=== PATIENT | male | born 2000 | race Two or more races ===

== ENCOUNTER 2018-01-11 09:33 | Inpatient (IN) | payer MEDICAID ==
[~2018-01-11] VITALS: Ht 172.7 cm; Wt 70.8 kg
--- NOTE | 2018-01-11 09:48 | NUR ---
PATIENT TO ED DT DIFFUSED ABDOMINAL PAIN X 2 DAYS. REPORTED VOMITTING 3X. DENIES DIAREHA. PATIENT NOT IN DISTRESS. SKIN IS WARM TO TOUCH AND NON DIAPHORETIC. AFEBRILE. VSS
--- NOTE | 2018-01-11 10:01 | NUR ---
SEEN BY MD JAMISON
--- NOTE | 2018-01-11 10:02 | NUR ---
SEEN BY MD BEAN
[2018-01-11] MEDS ORDERED: METOCLOPRAMIDE HCL 10 MG/2 ML VIAL ONE (10:11)
[2018-01-11 10:25] LABS: BASOPHILS # (AUTO) 0.1 /CMM (0.0-0.2); BASOPHILS % (AUTO) 0.6 % (0.0-2.0); EOSINOPHILS % (AUTO) 0.1 % (0.0-6.0); HEMATOCRIT 47 % (39-51); HEMOGLOBIN 15.7 g/dL (13.5-17.5); LYMPHOCYTES % (AUTO) 5.6 % (20.0-44.0); MEAN CORPUSCULAR HEMOGLOBIN 28 PG (26.0-33.0); MEAN CORPUSCULAR HGB CONC 33 g/dl (31.0-36.0); MEAN CORPUSCULAR VOLUME 85 fL (80-96); MONOCYTES # (AUTO) 0.7 /CMM (0.1-1.30); MONOCYTES % (AUTO) 3.8 % (2.0-12.0); NEUTROPHILS # (AUTO) 16.4 /CMM (1.8-8.9); NEUTROPHILS % (AUTO) 89.9 % (43.0-81.0); PLATELET COUNT (AUTO) 292 /CMM (150-450); RDW COEFFICIENT OF VARIATION 12.2 (11.5-15.0); WHITE BLOOD COUNT (AUTO) 18.2 K/uL (4.3-11.0)
[2018-01-11 10:25] LABS: APPEARANCE,URINE Clear (CLEAR); BILIRUBIN,URINE SMALL (NEGATIVE); BLOOD, URINE Negative Ery/uL (NEGATIVE); COLOR,URINE Dark (YELLOW); KETONES,URINE Negative (NEGATIVE); LEUKOCYTE ESTERASE ,URINE Negative (NEGATIVE); NITRITE, URINE Negative (NEGATIVE); PH,URINE 5.5 (5.0-8.0); PROTEIN,URINE Trace mg/dl (NEGATIVE); UGLUCOSE Negative (NEGATIVE); UROBILINOGEN,URINE 0.2 EU/dL (0.2)
[2018-01-11] MEDS ORDERED: IV NS 0.9% 1,000 ML BAG IV ONE (10:30)
[2018-01-11] MEDS ORDERED: METOCLOPRAMIDE HCL 10 MG/2 ML VIAL IV ONE (10:30)
[2018-01-11 10:32] LABS: CALCIUM, SERUM 9.6 mg/dL (8.5-10.1); POTASSIUM 4.2 mmol/L (3.5-5.1)
[2018-01-11 10:35] LABS: BACTERIA,URINE Few /HPF (None Seen); RBC,URINE 0-2 /HPF (0-2); SQUAMOUS EPITHELIAL CELL,UR Rare /HPF (None Seen)
[2018-01-11 10:36] LABS: URINE AMORPHOUS URATE Moderate /HPF (None Seen)
[2018-01-11] MEDS ORDERED: MORPHINE SULFATE INJ 4 MG/ML DISP.SYRIN ONE (10:36)
[2018-01-11] MEDS ORDERED: MORPHINE SULFATE INJ 2 MG/ML DISP.SYRIN IV ONE (11:00)
[2018-01-11] MEDS ORDERED: PIPERACILLIN /TAZOBACTAM 3.375 G in IV D5W 50 ML IV ONE (13:00)
--- NOTE | 2018-01-11 13:01 | NUR ---
CALLED PHARMACY FOR MADELINE
--- NOTE | 2018-01-11 13:21 | NUR ---
CALLED [facility] [facility] RESIDENTIAL SUBSTANCE ABUSE COUNSELOR WAS PAGED.
[2018-01-11 13:30] VITALS: BP 138/79
--- NOTE | 2018-01-11 13:30 | NUR ---
MS DIRECT CARE COUNSELOR NOTE PT BROUGHT TO MS UNIT VIA WHEELCHAIR ACCOMPANIED BY 2 ER STAFF IN STABLE CONDITION. PT IS A/O X4, AFEBRILE. RESPIRATIONS ARE EVEN AND UNLABORED, NOT IN ANY ACUTE DISTRESS NOTED. 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 ABDOMEN IS LITTLE TENDER AND C/O PAIN 8/10. PT STATED HE DOES NOT NEED ANY PAIN MEDS AT THIS TIME. PT DENIES ANY BLADDER DISCOMFORT. DENIES ANY SOB, N/V AT THIS TIME. IV ACCESS TO LAC 20G, NO INFILTRATION NOTED. DRESSING KEPT CLEAN AND DRY. SAFETY MEASURES ARE IN PLACE. DR. HAGAN MADE AWARE OF ADMISSION. INSTRUCTED PT TO USE CALL LIGHT WHEN ASSISTANCE IS NEEDED, CALL LIGHT IS LEFT WITHIN REACH. PT NOTIFIED PT BEING NPO EXCEPT MEDS FOR NOW AND IS COMPLIANT. WILL CONTINUE TO MONITOR THROUGHOUT SHIFT FOR CONTINUE OF CARE.
--- NOTE | 2018-01-11 13:38 | NUR ---
REPORT GIVEN TO TESS JONES.
[2018-01-11] MEDS ORDERED: MAGNESIUM HYDROXIDE 30 ML UDC PO PRN (14:00)
[2018-01-11] MEDS ORDERED: ACETAMINOPHEN 325 MG TABLET PO PRN (14:00)
[2018-01-11] MEDS ORDERED: Z GUARD REMEDY 2 OZ OINT TP PRN (14:00)
[2018-01-11] MEDS ORDERED: MORPHINE SULFATE INJ 2 MG/ML DISP.SYRIN IV PRN ×3 (14:00→21:00)
[2018-01-11] MEDS ORDERED: MAG HYDROX/AL HYDROX/SIMETH 30 ML UDC PO PRN (14:00)
[2018-01-11] MEDS ORDERED: ONDANSETRON HCL/PF 4 MG/2 ML VIAL IVP PRN (14:00)
[2018-01-11] MEDS ORDERED: ZOLPIDEM TARTRATE 5 MG TABLET PO PRN (14:00)
[2018-01-11 16:00] VITALS: BP 123/77
--- NOTE | 2018-01-11 16:41 | NUR ---
MS RN NOTES RECEIVED ORDERS PER DR. SHUKLA FOR PROCEDURE CONSENT FOR LAPARASCOPIC APPENDECTOMY, POSSIBLE OPEN. ALL CONSENTS SIGNED.
[2018-01-11 16:51] LABS: INR 0.95 (0.87-1.13)
--- NOTE | 2018-01-11 17:43 | NUR ---
MS RN NOTES OR STAFF PICKED UP PT FOR SURGERY IN STABLE CONDITION.
[2018-01-11] MEDS ORDERED: ANESTHESIA TRAY IN PYXIS 1 EA TRAY MC ONE (17:45)
[2018-01-11] MEDS ORDERED: FENTANYL PF 100MCG/2ML AMPUL ONE (17:53)
[2018-01-11] MEDS ORDERED: MIDAZOLAM HCL 2 MG/2ML VIAL ONE (17:54)
[2018-01-11] MEDS ORDERED: ROCURONIUM BROMIDE 50 MG/5 ML ONE ×2 (17:54→19:31)
[2018-01-11] MEDS ORDERED: LIDOCAINE 1%-EPI 1:100,000 20 ML VIAL ONE (18:09)
[2018-01-11] MEDS ORDERED: BUPIVACAINE MPF 0.75% 30 ML VIAL IJ ONE (18:30)
--- NOTE | 2018-01-11 18:56 | NUR ---
MS RN CLOSING NOTES PT NOT BACK FROM SURGERY. ENDORSED TO NEXT SHIFT FOR CONTINUITY OF CARE.
--- NOTE | 2018-01-11 19:30 | NUR ---
RN OPENING NOTES RECEIVED REPORT FROM ZAIN JONES. Pt STILL IN OR FOR SURGERY.
--- NOTE | 2018-01-11 21:00 | NUR ---
RN NOTES Pt BROUGHT BACK FROM OR. Pt LOOKS LETHARGIC, BUT IS RESPONSIVE AND ANSWERING QUESTIONS. DENIES PAIN AT THIS TIME. SURGICAL SITES ON LUQ, BELLY BUTTON, & PUBIC REGION. EDUARD DRAIN IN PUBIC REGION, COVERED WITH GAUZE AND TAPE, NO SIGNS OF BLEEDING. DRAINAGE NOTED IN EDUARD DRAIN. NO S/S OF ACUTE DISTRESS OR SOB NOTED. VS STABLE. FAMILY VISITING AT BEDSIDE. SAFETY MEASURES IN PLACE. BED LOW, LOCKED, HOB ELEVATED, SIDE RAILS UP, CALL LIGHT AND BEDSIDE TABLE WITHIN REACH. WILL CONTINUE TO MONITOR Pt FOR SAFETY.
--- NOTE | 2018-01-11 21:05 | NUR ---
RN NOTES EDUARD DRAIN 50CC
[2018-01-11 22:00] VITALS: BP 128/65
[2018-01-11] MEDS ORDERED: PIPERACILLIN /TAZOBACTAM 3.375 G VIAL IV ONE (22:52)
[2018-01-11] MEDS: PIPERACILLIN /TAZOBACTAM 3.375 G in IV NS 0.9% 50 ML IV SCH (23:24)
[2018-01-12] MEDS: MORPHINE SULFATE INJ 2 MG/ML DISP.SYRIN IV PRN ×4 (00:57→17:12)
[2018-01-12] MEDS ORDERED: PIPERACILLIN /TAZOBACTAM 3.375 G VIAL IV ONE (02:44)
[2018-01-12] MEDS: PIPERACILLIN /TAZOBACTAM 3.375 G in IV NS 0.9% 50 ML IV SCH ×2 (03:00→09:53)
--- NOTE | 2018-01-12 06:40 | NUR ---
RN NOTES ADDITIONAL EDUARD DRAIN OUTPUT 50CC. TOTAL 100CC OUTPUT.
--- NOTE | 2018-01-12 06:45 | NUR ---
RN CLOSING NOTES NO SIGNIFICANT CHANGES IN Pt's CONDITION. Pt REMAINS STABLE AT THIS TIME. NO S/S OF ACUTE DISTRESS OR SOB NOTED DURING THE NIGHT. Pt SLEPT WELL WITH EVEN AND UNLABORED RESPIRATIONS. ALL NEEDS MET AND ATTENDED TO. SAFETY MEASURES IN PLACE. BED LOW, LOCKED, HOB ELEVATED, SIDE RAILS UP, CALL LIGHT AND BEDSIDE TABLE WITHIN REACH. WILL ENDORSE TO DAYSHIFT RN FOR Pt's YUSUF.
[2018-01-12 06:50] LABS: BASOPHILS % (AUTO) 0.3 % (0.0-2.0); HEMATOCRIT 40 % (39-51); HEMOGLOBIN 13.3 g/dL (13.5-17.5); LYMPHOCYTES # (AUTO) 1.9 /CMM (0.8-4.8); LYMPHOCYTES % (AUTO) 12.6 % (20.0-44.0); MEAN CORPUSCULAR HEMOGLOBIN 29 PG (26.0-33.0); MEAN CORPUSCULAR HGB CONC 33 g/dl (31.0-36.0); MEAN CORPUSCULAR VOLUME 88 fL (80-96); MONOCYTES # (AUTO) 0.6 /CMM (0.1-1.30); MONOCYTES % (AUTO) 4.2 % (2.0-12.0); NEUTROPHILS # (AUTO) 12.7 /CMM (1.8-8.9); NEUTROPHILS % (AUTO) 82.9 % (43.0-81.0); PLATELET COUNT (AUTO) 240 /CMM (150-450); RDW COEFFICIENT OF VARIATION 13.2 (11.5-15.0); RED BLOOD CELL COUNT(AUTO) 4.53 MIL/uL (4.5-6.0); WHITE BLOOD COUNT (AUTO) 15.3 K/uL (4.3-11.0)
[2018-01-12 07:06] LABS: CALCIUM, SERUM 8.4 mg/dL (8.5-10.1); MAGNESIUM 1.9 mg/dL (1.8-2.4); PHOSPHORUS 4.1 mg/dL (2.5-4.9); POTASSIUM 3.9 mmol/L (3.5-5.1)
--- NOTE | 2018-01-12 07:10 | NUR ---
RN NOTE PATIENT A/OX4, STILL C/O ABDOMINAL PAIN, PT JUST RECEIVED MORPHINE BEFORE 7AM, INFORMED PATIENT TO MONITOR FOR NOW AND GIVE IT SOME TIME FOR THE MEDICINE TO TAKE EFFECT. EDUARD DRAIN PATENT AND INTACT, DRAINING WITH SANGUINEOUS FLUID. NEEDS ATTENDED AND MET, CALL LIGHT WITHIN REACH, WILL CONTINUE TO MONITOR.
[2018-01-12] MEDS: HYDROCODONE/APAP 5/325MG 1 EACH TABLET PO PRN ×2 (08:09→13:54)
[2018-01-12 08:56] VITALS: BP 125/71
[2018-01-12] MEDS: DOCUSATE SODIUM 100 MG CAPSULE PO PRN (11:34)
[2018-01-12 15:48] VITALS: BP 120/65
[2018-01-12] MEDS: ZOSYN IVPB 3.375 G in IV D5W 50ml IV SCH ×2 (17:15→23:51)
--- NOTE | 2018-01-12 18:20 | NUR ---
RN NOTES PATIENT A/OX4, NO SIGNIFICANT CHANGE DURING THIS SHIFT, PATIENT STILL WITH ABDOMINAL PAIN BUT TOLERABLE AT THIS TIME, PATIENT ENCOURAGE TO MOVE AROUND AND TURN, BUT UNABLE TO TOLERATE MUCH MOVEMENT DUE TO PAIN. PATIENT DID TOLERATE CLEAR LIQUIDS TODAY, WILL ADVANCE DIET FOR TOMORROW. NO C/O NAUSEA OR VOMITING AT THIS TIME. EDUARD DRAIN WITH OUTPUT OF 40ML THROUGHOUT THIS SHIFT. NEEDS ATTENDED AND METC, CALL LIGHT WITHIN REACH, WILL ENDORSE TO LEASE ADMINISTRATOR FOR YUSUF.
--- NOTE | 2018-01-12 19:04 | NUR ---
RN NOTES PATIENT SEEN BY DR. SHUKLA, RECEIVED NEW ORDERS TO INCREASE MORPHINE TO 3MG Q1HR PRN, AND NORCO TO 10/325MG Q4H PRN. ORDER NOTED AND CARRIED OUT.
[2018-01-12] MEDS ORDERED: HYDROCODONE/APAP 10/325MG 1 EA TABLET PO PRN (19:30)
[2018-01-12] MEDS ORDERED: MORPHINE SULFATE INJ 2 MG/ML DISP.SYRIN IV PRN (19:30)
--- NOTE | 2018-01-12 19:30 | NUR ---
MS RN NOTES RECEIVED ON BED A/O X4,S/P LAP ANTHONY 01/[address] SHUKLA.WITH 3 ABDOMINAL SURGICAL INCISION,CLEAN AND NO BLEEDING NOTED.SALINE LOCK LEFT AC INTACT AND PATENT,NS AT TKO RATE INFUSING VIA IV PUMP.ENCOURAGED TO MOVE AROUND AND BED,POSSIBLY EARLY AMBULATION IF TOLERATED.CALL LIGHT IN REACH,NEEDS ANTICIPATED.
[2018-01-12 20:00] VITALS: BP 134/76
[2018-01-12] MEDS: MORPHINE SULFATE INJ 4 MG/ML DISP.SYRIN IV PRN (21:05)
--- NOTE | 2018-01-12 21:05 | NUR ---
MS RN NOTES PAIN MANAGEMENT C/O ABDOMINAL PAIN 8/10 ON PAIN SCALE.MEDICATED WITH MORPHINE 3MG IV ORDERED FOR SEVERE PAIN.WILL CONTINUE TO MONITOR STATUS.
--- NOTE | 2018-01-13 02:15 | NUR ---
MS RN NOTES AWAKE,PAIN TOLERABLE AT THIS TIME.CLAIMED HE ALREADY PASSED GAS AND HE FEELS MUCH BETTER.GABINO ARELLANO DRAINS 35ML.
[2018-01-13] MEDS: ZOSYN IVPB 3.375 G in IV D5W 50ml IV SCH ×3 (05:52→17:37)
[2018-01-13 06:29] LABS: BASOPHILS % (AUTO) 0.3 % (0.0-2.0); EOSINOPHILS % (AUTO) 0.2 % (0.0-6.0); HEMATOCRIT 41 % (39-51); HEMOGLOBIN 13.4 g/dL (13.5-17.5); LYMPHOCYTES # (AUTO) 1.7 /CMM (0.8-4.8); LYMPHOCYTES % (AUTO) 13.1 % (20.0-44.0); MEAN CORPUSCULAR HEMOGLOBIN 29 PG (26.0-33.0); MEAN CORPUSCULAR HGB CONC 33 g/dl (31.0-36.0); MEAN CORPUSCULAR VOLUME 89 fL (80-96); MONOCYTES # (AUTO) 0.6 /CMM (0.1-1.30); MONOCYTES % (AUTO) 4.7 % (2.0-12.0); NEUTROPHILS # (AUTO) 10.6 /CMM (1.8-8.9); NEUTROPHILS % (AUTO) 81.7 % (43.0-81.0); PLATELET COUNT (AUTO) 243 /CMM (150-450); RDW COEFFICIENT OF VARIATION 13.1 (11.5-15.0); RED BLOOD CELL COUNT(AUTO) 4.61 MIL/uL (4.5-6.0)
--- NOTE | 2018-01-13 07:00 | NUR ---
MS RN NOTES SLEPT WELL AT NIGHT.PAIN MANAGEMENT EFFECTIVE.IV ABX TOLERATED WELL.IN NO ACUTE DISTRESS.ENDORSED TO SANDI PULIDO FOR YUSUF.
[2018-01-13 07:03] LABS: CALCIUM, SERUM 8.5 mg/dL (8.5-10.1); POTASSIUM 3.7 mmol/L (3.5-5.1)
--- NOTE | 2018-01-13 07:10 | NUR ---
RN NOTES PATIENT A/OX4, NO DISTRESS NOTED, BREATHING EVEN AND UNLABORED, NO SOB NOTED, DENIES PAIN AT THIS TIME, NEEDS ATTENDED, KEPT PATIENT COMFORTABLE, EDUARD DRAINING AND INTACT, CALL LIGHT WITHIN REACH, WILL CONTINUE TO MONITOR.
[2018-01-13 08:00] VITALS: BP 125/71
[2018-01-13] MEDS: MORPHINE SULFATE INJ 4 MG/ML DISP.SYRIN IV PRN (10:02)
[2018-01-13] MEDS: DOCUSATE SODIUM 100 MG CAPSULE PO PRN (12:13)
--- NOTE | 2018-01-13 15:58 | NUR ---
PT C/O S/P LAP ANTHONY SURGICAL WOUND PAIN AND PULLED OUT MORPHINE 4 MG IV AND DISCARDED 1 MG IV AT FIRST WITNESSED BY DONTAE DIETRICH.PT CHANGED HIS MIND AND WANTED MORPHINE 1 MG IV INSTEAD.WENT BACK TO [facility] AND DISCARDED ANOTHER 2 MG WITNESSED BY DONTAE DIETRICH.TRIED TO SCAN THE MORPHINE 4 MG IV AND ADJUSTED THE DOSE TO 1 MG BUT SYSTEM WON'T ACCEPT.CALLED PHARMACY AND SPOKE TO HOLLIS AND INSTRUCTED TO WASTE THE TOTAL OF MORPHINE 4 MG IV AND WAIT TILL THEY REFILL THE MORPHINE 2 MG IV.PRIMARY RN,SANDI SAUNDERS.
[2018-01-13 16:00] VITALS: BP 116/72
[2018-01-13] MEDS ORDERED: MORPHINE SULFATE INJ 4 MG/ML DISP.SYRIN IV PRN (16:01)
--- NOTE | 2018-01-13 17:00 | NUR ---
RN NOTES PATIENT WAS ABLE TO AMBULATE IN THE HALLWAY THIS MORNING AND THIS AFTERNOON, HE'S TOLERATING THE PAIN AND REGULAR DIET. NO N/V/D. PATIENT ABLE TO PASS GAS, STILL NO BM. EDUARD DRAIN WITH 20CC OF OUTPUT. NEEDS ATTENDED AND MET, CALL LIGHT WITHIN REACH, WILL CONTINUE TO MONITOR.
--- NOTE | 2018-01-13 18:19 | NUR ---
RN NOTES PATIENT A/OX4, NO SIGNIFICANT CHANGE THIS SHIFT, PATIENT ABLE TO AMBULATE IN THE HALLWAY AND IS TOLERATING REGULAR DIET. PATIENT'S PAIN HAS IMPROVED. NEEDS ATTENDED AND MET, CALL LIGHT WITHIN REACH, WILL ENDORSE TO INFRASTRUCTURE DESIGN ENGINEER FOR YUSUF.
--- NOTE | 2018-01-13 19:15 | NUR ---
MS RN NOTES RECEIVED ON BED SLEEPING.ON SEMI FOWLERS POSITION.BREATHING REGULAR,NOT IN ANY FORM OF DISTRESS.S/P LAP APPY ON 01/[address] SHUKLA.EDUARD DRAINS IN PLACE DRAINS SCANTY OUTPUT.SURGICAL INCISION X3 VIA ABDOMEN CLEAN AND DRY.FAMILY MEMBERS AT BEDSIDE.CALL LIGHT IN REACH,NEEDS ANTICIPATED.
[2018-01-13 20:00] VITALS: BP 111/63
[2018-01-14] MEDS: ZOSYN IVPB 3.375 G in IV D5W 50ml IV SCH ×5 (00:03→23:00)
--- NOTE | 2018-01-14 00:28 | NUR ---
MS RN NOTES AWAKE,AMBULATE TO THE RESTROOM,HAD BM.C/O ABDOMINAL PAIN 4/10 ON PAIN SCALE.MEDICATED WITH NORCO 10/325MG,1TAB PO PER PATIENT REQUEST.
--- NOTE | 2018-01-14 06:50 | NUR ---
MS RN NOTES FAIRLY RESTED AT NIGHT.PAIN MANAGEMENT EFFECTIVE,HAD BM,PASSING GAS,AMBULATES WITH STEADY GAIT.IV ABX TOLERATED WELL,EDUARD DRAINS PINKISH OUTPUT.NO N/V NOTED.CALL LIGH IN REACH,NEEDS ATTENDED.ENDORSED TO DAY NURSE FOR YUSUF.
--- NOTE | 2018-01-14 07:16 | NUR ---
MS RN NOTES RECEIVED PT AWAKE IN BED IN NO ACUTE SIGNS OF DISTRESS. A/O X4. ABLE TO MAKE NEEDS KNOWN, DENIES PAIN OR ANY DISCOMFORTS AT THIS TIME. ON ROOM AIR, BREATHING EVEN AND UNLABORED. IV ACCESS ON LAC G#20INTACT AND PATENT, FLUSHES WELL. EDUARD DRAIN ON LEFT LOWER ABDOMEN IN PLACE WITH 15ML BLOOD TINGED DRAINAGE NOTED. CALL LIGHT WITHIN REACH. WILL CONTINUE TO MONITOR.
[2018-01-14 08:00] VITALS: BP 128/75
--- NOTE | 2018-01-14 14:46 | NUR ---
RN NOTES LFT MESSAGE TO DR SHUKLA ASKING IF HE WILL COME TO CHECK PT TODAY. AWAITING FOR RESPONSE.
--- NOTE | 2018-01-14 15:31 | NUR ---
RN NOTES RECEIVED RETURN CALL FROM DR SHUKLA AND SAID THAT HE COULDN'T COME TO DAY AND ORDERED TO REMOVE GABINO ARELLANO DRAIN ON LEFT LOWER ABDOMEN. PATIENT WITH TOTAL EDUARD DRAINAGE OF 30ML/HR OF LIGHT YELLOW BLOOD TINGED DRAINAGE. GABINO ARELLANO REMOVED WITH EASED WITH NO ACTIVE BLEEDING AT SITE NOTED. APPLIED PRESSURE GAUZE AND TAPED. WILL CONTINUE TO MONITOR.
[2018-01-14 16:00] VITALS: BP 137/66
--- NOTE | 2018-01-14 18:30 | NUR ---
MS RN CLOSING NOTES PATIENT RESTING IN BED AT MODERATE HIGH BACKREST POSITION. A/O X4. ABLE TO MAKE NEEDS KNOWN AND AMBULATORY. ON ROOM AIR, TOLERATING WELL WITH NO ACUTE DISTRESS NOTED. S/P EDUARD REMOVAL, DRESSING C/D/I. SALINE LOCK IV ACCESS ON LAC G#20 INTACT AND PATENT, FLUSHES WELL. ALL SAFETY MEASURES KEPT IN PLACE. BED IN LOW/LOCKED POSITION WITH SR UP X2. CALL LIGHT WITHIN REACH. ALL NEEDS AND CARE ATTENDED WELL. WILL ENDORSE TO AGRICULTURE LABORATORY TECHNICIAN FOR YUSUF.
--- NOTE | 2018-01-14 19:00 | NUR ---
MS RN OPENING NOTE RECEIVE PATIENT AWAKE IN BED, A/O X 3, NO SOB OR DISTRESS NOTED, CALL LIGHT WITHIN REACH. SAFETY MEASURES IMPLEMENTED. WILL CONTINUE TO MONITOR THROUGHOUT SHIFT.
--- NOTE | 2018-01-14 19:20 | NUR ---
RN NOTES PATIENT MOVED TO ROOM 316-1. REPORT GIVEN TO NIGHT NURSE MALINI FOR CONTINUITY OF CARE.
[2018-01-14 20:00] VITALS: BP 138/70
[2018-01-15] MEDS: ZOSYN IVPB 3.375 G in IV D5W 50ml IV SCH ×2 (05:11→11:28)
--- NOTE | 2018-01-15 06:17 | NUR ---
MS RN CLOSING NOTES PT COMFORTABLY ASLEEP AND EASILY AWAKEN, STABLE, NOT IN DISTRESS. TOLERATING ROOM AIR 98% RESPIRATION EVEN AND UNLABORED. KEPT CLEAN AND DRY AND COMFORTABLE, ALL NURSING CARE RENDERED. NEEDS ATTENDED AND ANTICIPATED, DRESSING INTACT TO ABDOMEN C/D/I NO S/S OF INFECTION AND BLEEDING. NO COMPLAIN OF PAIN. GOOD SKIN CARE PROVIDED. ON LOW BED AT ALL TIMES TO ENSURE SAFETY. SAFE HAZARD FREE ENVIRONMENT PROVIDED. CALL LIGHT WITHIN EASY TO REACH. WILL ENDORSE NEXT SHIFT CONTINUITY OF CARE.
[2018-01-15 07:26] LABS: BASOPHILS % (AUTO) 0.4 % (0.0-2.0); EOSINOPHILS % (AUTO) 3.4 % (0.0-6.0); HEMATOCRIT 42 % (39-51); HEMOGLOBIN 13.6 g/dL (13.5-17.5); LYMPHOCYTES # (AUTO) 1.8 /CMM (0.8-4.8); LYMPHOCYTES % (AUTO) 26.9 % (20.0-44.0); MEAN CORPUSCULAR HEMOGLOBIN 29 PG (26.0-33.0); MEAN CORPUSCULAR HGB CONC 32 g/dl (31.0-36.0); MEAN CORPUSCULAR VOLUME 88 fL (80-96); MONOCYTES # (AUTO) 0.4 /CMM (0.1-1.30); MONOCYTES % (AUTO) 6.2 % (2.0-12.0); NEUTROPHILS # (AUTO) 4.2 /CMM (1.8-8.9); NEUTROPHILS % (AUTO) 63.1 % (43.0-81.0); PLATELET COUNT (AUTO) 309 /CMM (150-450); RDW COEFFICIENT OF VARIATION 12.8 (11.5-15.0); RED BLOOD CELL COUNT(AUTO) 4.76 MIL/uL (4.5-6.0); WHITE BLOOD COUNT (AUTO) 6.7 K/uL (4.3-11.0)
[2018-01-15 07:38] LABS: CREATININE 0.9 mg/dL (0.6-1.3); POTASSIUM 3.9 mmol/L (3.5-5.1)
--- NOTE | 2018-01-15 07:40 | NUR ---
MS RN OPENING NOTES RECEIVED PATIENT IN STABLE CONDITION. IN NO APPARENT DISTRESS. BEDSIDE RAILS ARE UPX2. BED IS LOCKED AND LOWERED. CALL LIGHT IS WITHIN REACH. IV LINE IS INTACT AND PATENT. WILL CONTINUE TO MONITOR.
[2018-01-15 08:00] VITALS: BP 111/60
[2018-01-15] MEDS ORDERED: DOCU-141 PO (08:22)
[2018-01-15] MEDS ORDERED: HYDR-552 PO (08:22)
--- NOTE | 2018-01-15 12:10 | NUR ---
PATIENT DISCHARGED IN STABLE CONDITION. IN NO APPARENT DISTRESS. EXITCARE WAS PROVIDED TO THE PATIENT. IV LINE WAS REMOVED. ID BAND WAS REMOVED. PRESCRIPTION WAS PROVIDED TO THE PATIENT. ALL NEEDS WERE MET. PATIENT ESCORTED OUT OF THE FACILITY ACCOMPANIED BY MOTHER. PATIENT'S MOTHER WILL DRIVE PATIENT HOME.
== END 2018-01-15 12:00 | disposition home or self-care (01) | DRG 234 ==
LOC: ER 09:37 → MEDSG2 13:42 → MED 01-14 18:33
PROVIDERS: ADMIT Family Medicine; ATTEND Family Medicine
PROC: 0DTJ4ZZ Resection of Appendix, Percutaneous Endoscopic Approach (ICD-10-PCS; principal; 2018-01-11 19:30)
DX: K35.80 Unspecified acute appendicitis (principal); K56.7 Ileus, unspecified; R73.9 Hyperglycemia, unspecified
CPT/HCPCS: 36415; 74021; 80048-TC; 80061-TC; 81000-TC; 83735-TC; 84100-TC; 85025-TC; 85610-TC; 85730-TC; 87070-TC; 87081-TC; 87186-TC; 88304-TC; A4216; A4606; A6402; J2250; J2270; J2543; J2765; J3010; J3490; J7050; J7060; J7120; Z7610